=== PATIENT | male | born 1970 | race Hispanic/Latino ===

== ENCOUNTER 2023-11-08 21:45 | Emergency (ER) | payer BC | END 2023-11-08 22:30 | disposition left against medical advice (07) | LOC: EEVIPCON 21:45 → EDH 21:45 | DX: R07.89 Other chest pain (principal); R09.81 Nasal congestion; Z53.21 Procedure and treatment not carried out due to patient leaving prior to being seen by health care provider | CPT/HCPCS: 93005 ==